=== PATIENT | female | born 1990 | race Caucasian/White ===

== ENCOUNTER → 2020-06-07 13:36 | Outpatient (BNVA) | payer BC, MEDICAID, SELFPAY | PROVIDERS: Family Provider Family Medicine; Visit Provider Nurse Practitioner Women's Health | DX: Z34.80 Encounter for supervision of other normal pregnancy, unspecified trimester (principal) | CPT/HCPCS: 81000 ==

== ENCOUNTER → 2020-06-13 09:40 | Outpatient (BNVA) | payer BC, MEDICAID, SELFPAY | PROVIDERS: Family Provider Family Medicine; Visit Provider Obstetrics & Gynecology | DX: Z34.80 Encounter for supervision of other normal pregnancy, unspecified trimester (principal) | CPT/HCPCS: 80307; 81000; 85027; 86592; 86762; 86803; 86850; 86900; 87086; 87340; 87491; 87591; 87806 ==

== ENCOUNTER → 2020-07-07 14:51 | Outpatient (BNVA) | payer BC, MEDICAID, SELFPAY | PROVIDERS: Family Provider Family Medicine; Visit Provider Nurse Practitioner Women's Health | DX: Z34.90 Encounter for supervision of normal pregnancy, unspecified, unspecified trimester (principal); Z78.9 Other specified health status; B00.9 Herpesviral infection, unspecified; Z34.80 Encounter for supervision of other normal pregnancy, unspecified trimester | CPT/HCPCS: 81000 ==

== ENCOUNTER → 2020-08-05 13:05 | Outpatient (BNVA) | payer BC, MEDICAID, SELFPAY | PROVIDERS: Family Provider Family Medicine; Visit Provider Obstetrics & Gynecology | DX: Z36.87 Encounter for antenatal screening for uncertain dates (principal) | CPT/HCPCS: 76805 ==

== ENCOUNTER → 2020-08-09 09:15 | Outpatient (BNVA) | payer BC, MEDICAID, SELFPAY | PROVIDERS: Family Provider Family Medicine; Visit Provider Obstetrics & Gynecology | DX: Z34.80 Encounter for supervision of other normal pregnancy, unspecified trimester (principal) | CPT/HCPCS: 81000 ==

== ENCOUNTER → 2020-08-30 14:24 | Outpatient (BNVA) | payer BC, MEDICAID, SELFPAY | PROVIDERS: Family Provider Family Medicine; Visit Provider Nurse Practitioner Women's Health | DX: Z34.80 Encounter for supervision of other normal pregnancy, unspecified trimester (principal) | CPT/HCPCS: 81000; 82950 ==

== ENCOUNTER → 2020-09-27 10:31 | Outpatient (BNVA) | payer BC, MEDICAID, SELFPAY | PROVIDERS: Family Provider Family Medicine; Visit Provider Obstetrics & Gynecology | DX: Z34.80 Encounter for supervision of other normal pregnancy, unspecified trimester (principal) | CPT/HCPCS: 81000; 85027 ==

== ENCOUNTER → 2020-10-17 13:37 | Outpatient (BNVA) | payer BC, MEDICAID, SELFPAY | PROVIDERS: Family Provider Family Medicine; Visit Provider Obstetrics & Gynecology | DX: Z34.80 Encounter for supervision of other normal pregnancy, unspecified trimester (principal) | CPT/HCPCS: 81000 ==

== ENCOUNTER → 2020-10-24 10:01 | Outpatient (BNVA) | payer BC, MEDICAID, SELFPAY | PROVIDERS: Family Provider Family Medicine; Visit Provider Obstetrics & Gynecology | DX: Z34.80 Encounter for supervision of other normal pregnancy, unspecified trimester (principal) | CPT/HCPCS: 81000 ==

== ENCOUNTER 2020-10-31 15:38 | Outpatient (CLI) | payer BC, MEDICAID, SELFPAY ==
[2020-10-31] VITALS (7 sets, daily range): BP systolic 105–119; BP diastolic 59–68; PULSE 81–91; RESP 18; TEMP 36.3–36.9; BMI 29.5
--- NOTE | 2020-10-31 15:59 | USR_ITS ---
PROCEDURE INFORMATION: Exam: US Biophysical Profile Without Non-Stress Test Exam date and time: 10/31/2020 3:59 PM Age: 30 years old Clinical indication: Other: Growth; ; Additional info: Abnormal growth TECHNIQUE: Imaging protocol: US biophysical profile without non-stress testing. COMPARISON: US OB >= 14 weeks fetus [id number] 08/05/2020 1:06 PM FINDINGS: Gestation: Single live intrauterine gestation. heart rate: heart rate 138 bpm. Presentation: Cephalic presentation. Placenta: Anterior placenta without previa. No abruption. Amniotic fluid index: Amniotic fluid index estimated 15.8 cm. BIOPHYSICAL PROFILE: Breathin/2 Gross body movements: 2/2 tone: 2/2 Qualitative amniotic fluid: 2/2 Biophysical Profile Score: 8/8 BIOMETRY: Estimated weight: Estimated weight 1938 g. Gestational age (AUA): Estimated gestational age based on current biometry is 32 weeks, 3 days. Previously estimated gestational age is 32 weeks, 6 days. MATERNAL ANATOMY: Cervix: Cervical length approximately 4.1 cm measured transabdominally. Other findings: Biparietal diameter of the fetus is 8.04 cm; 26th percentile. Head circumference of the fetus is 29.72 cm; 15th percentile. Abdominal circumference of the fetus is 27.96 cm; 26 percentile. Femur length of the fetus is 6.28 cm; 29th percentile. Estimated weight percentile 54th percentile. US/ [place] [id number] IMPRESSION: 1. Single live cephalic presentation intrauterine gestation. 2. Unremarkable amniotic fluid index. 3. Biophysical profile score 8/8. 4. growth parameters grossly unremarkable. Current biometry relatively concordant with previously estimated gestational age.
== END 2020-10-31 17:40 | disposition home or self-care (01) ==
LOC: OPOB 15:43 → OBGYN 15:43
PROVIDERS: Family Provider Family Medicine; Visit Provider Obstetrics & Gynecology
DX: O26.899 Other specified pregnancy related conditions, unspecified trimester (principal); Z3A.00 Weeks of gestation of pregnancy not specified; R10.9 Unspecified abdominal pain
CPT/HCPCS: 59025; 76819; 99211

== ENCOUNTER → 2020-11-11 09:41 | Outpatient (BNVA) | payer BC, MEDICAID, SELFPAY | PROVIDERS: Family Provider Family Medicine; Visit Provider Obstetrics & Gynecology | DX: Z34.80 Encounter for supervision of other normal pregnancy, unspecified trimester (principal) | CPT/HCPCS: 81000 ==

== ENCOUNTER 2020-11-18 06:24 | Outpatient (CLI) | payer BC, MEDICAID, SELFPAY ==
[2020-11-18 06:39] VITALS: BP 107/67; PULSE 83
[2020-11-18 06:55] VITALS: BMI 29.7
--- NOTE | 2020-11-18 07:01 | PM.ACPR ---
Procedure/Consent Procedure Narrative: NONSTRESS TEST: Place of test: [facility] [place]-L&D Indication: 30-year-old 5 para 2-1-1-3 at 35 weeks and 3 days Date and time of test: 6:45 AM on 11/18/2020 Baseline: 135 Variability: Moderate variability Accelerations: Accelerations present Decelerations: No decelerations Tocometry: Irregular contractions INTERPRETATION: NST reactive, continue kick counts
[2020-11-18] MEDS: lactated ringers 1,000 ML 999 ML IV (07:53)
[2020-11-18 07:55] VITALS: BP 114/70; PULSE 75
[2020-11-18 07:58] VITALS: RESP 17
[2020-11-18 08:25] VITALS: BP 103/61; PULSE 76
[2020-11-18 08:50] VITALS: TEMP 36.3
[2020-11-18 08:52] VITALS: BP 111/66; PULSE 72
== END 2020-11-18 09:00 | disposition home or self-care (01) ==
LOC: OPOB 06:31 → OBGYN 06:31
PROVIDERS: Family Provider Family Medicine; Visit Provider Obstetrics & Gynecology
DX: O26.893 Other specified pregnancy related conditions, third trimester (principal); Z3A.00 Weeks of gestation of pregnancy not specified; R10.9 Unspecified abdominal pain; Z3A.35 35 weeks gestation of pregnancy
CPT/HCPCS: 59025; 96360; 99211

== ENCOUNTER → 2020-11-22 09:50 | Outpatient (BNVA) | payer BC, MEDICAID, SELFPAY | PROVIDERS: Family Provider Family Medicine; Visit Provider Obstetrics & Gynecology | DX: Z34.80 Encounter for supervision of other normal pregnancy, unspecified trimester (principal) | CPT/HCPCS: 81000; 87081 ==

== ENCOUNTER → 2020-11-29 09:52 | Outpatient (BNVA) | payer BC, MEDICAID, SELFPAY | PROVIDERS: Family Provider Family Medicine; Visit Provider Obstetrics & Gynecology | DX: Z34.80 Encounter for supervision of other normal pregnancy, unspecified trimester (principal) | CPT/HCPCS: 81000 ==

== ENCOUNTER → 2020-12-09 14:05 | Outpatient (BNVA) | payer BC, MEDICAID, SELFPAY | PROVIDERS: Family Provider Family Medicine; Visit Provider Obstetrics & Gynecology | DX: Z34.80 Encounter for supervision of other normal pregnancy, unspecified trimester (principal) | CPT/HCPCS: 81000 ==

== ENCOUNTER 2020-12-13 21:20 | Inpatient (IN) | payer BC, MEDICAID, SELFPAY ==
[2020-12-13] VITALS (10 sets, daily range): BP systolic 110–119; BP diastolic 64–74; PULSE 69–95; RESP 15–16; TEMP 36.6–37; BMI 31.6
[2020-12-13] MEDS: miSOPROStol 100 mcg tablet 25 MCG VAGINAL ×2 (18:42→23:30)
[2020-12-13 19:15] LABS: Basophils % 0.3 %; Eosinophils # 0.3 10^3/uL (0.0-0.8); Eosinophils % 2.8 %; Hematocrit 34.4 % (37.0-47.0); Hemoglobin 11.6 g/dL (11.5-15.3); Lymphocytes # 2.3 10^3/uL (0.8-4.8); Lymphocytes % 22.2 %; Mean Corpuscular HGB Conc 33.7 g/dL (30.0-36.0); Mean Corpuscular Hemoglobin 30.9 pg (28.0-34.0); Mean Corpuscular Volume 91.7 fl (81-99); Mean Platelet Volume 11.2 fL (7.4-10.4); Monocytes # 0.7 10^3/uL (0.2-0.9); Monocytes % 7.1 %; Neutrophils # 6.95 10^3/uL (1.8-7.7); Neutrophils % 66.9 %; Nucleated Red Blood Cells % 0 %; Platelet Count 228 10^3/cmm (130-400); Red Blood Count 3.75 10^6/uL (4.1-5.3); Red Cell Distribution Width 12.8 % (12.1-15.1); White Blood Count 10.4 10^3/uL (4.0-10.0)
[2020-12-13 19:31] LABS: Amphetamines Screen Urine Negative (Negative); Barbiturates Screen Urine Negative (Negative); Benzodiazepines Screen Urine Negative (Negative); Cocaine Screen Urine Negative (Negative); Opiate Screen Urine Negative (Negative); PCP Screen Urine Negative (Negative); THC Screen Urine Negative (Negative)
[2020-12-14] VITALS (73 sets, daily range): BP systolic 107–134; BP diastolic 56–85; PULSE 60–93; RESP 16–18; TEMP 35.9–37.1; O2SAT 83–100
[2020-12-14] MEDS: fentaNYL 50 mcg/mL INJ 2mL IVP ×2 (02:56→04:07)
[2020-12-14] MEDS: lactated ringers 1,000 ML 999 ML IV ×2 (04:05→05:06)
--- NOTE | 2020-12-14 05:14 | ANES.PREANE2 ---
Pre-Anesthetic Assessment Pre-Anesthetic Assessment: Height/Weight: Height 1.63 m Weight 83.461 kg Temp Pulse Resp BP 98.2 F 72 16 123/70 12/13/20 23:33 12/14/20 04:56 12/14/20 04:07 12/14/20 04:56 Preop Diagnosis: labor pain Proposed Procedure: epidural Familial anesthetic complications: epidural worked on one side last time Was Beta Jacob taken within 24 hours: N/A Was Clonidine taken within 24 hours: N/A Social: Social History: No alcohol and No tobacco Exam: Pre-Anes Outpt Exam: alert, oriented x 3, clear to auscultation bilaterally and regular rate & rhythm Airway: Submandibular: WNL Cervical ROM: WNL MP: 2 Dentition: Full Pulmonary: Pulmonary: None reported CV/HEM: CV/HEM: None reported : : None reported Hepatic: Hepatic: None reported GI: GI: GERD Metabolic: Metabolic: None reported Musc/skel: Musc/skel: None reported Neuropsych: Neuropsych: Anxiety Anesthetic Plan: ASA status: 2 Anesthesia: Regional (specify below) Risk of > 500 ml blood loss (7ml/kg in children): No Meds/Allergies Current Medications: Current Medications Generic Name Dose Route Start Last Admin Trade Name Freq PRN Reason Stop Dose Admin Fentanyl 25 - 100 mcg 12/13/20 18:24 12/14/20 04:07 Fentanyl 50 Mcg/ Ml Inj 2ml IVP 50 mcg Q1H PRN Administration SEVERE PAIN Lactated Ringer's 1,000 mls @ 999 m ls/hr 12/14/20 03:46 12/14/20 04:05 Lactated Ringers IV 999 mls/hr .Q1H1M PRN Administration See label comment s PFSH Anesthesia PFSH: Medical History Herpes No pertinent past medical history neghx: htn,dm,thyroid,dvt/pe PCP: None Surgical History Hx of wisdom tooth extraction (~2015) Family History Denies family history of Colon cancer Ovarian cancer Diabetes Heart disease Hypercholesteremia Breast cancer Hypertension Uterine cancer Thyroid disease Stroke Social History Smoking and tobacco status: former smoker Alcohol intake: never Female Reproductive History: : 5 Data Anesthesia CBC & Chem 7: 12/13/20 18:30 Other Labs: Laboratory Results - last 48 hr 12/13/20 12/13/20 18:30 18:30 WBC 10.4 H RBC 3.75 L Hgb 11.6 Hct 34.4 L MCV 91.7 MCH 30.9 MCHC 33.7 RDW 12.8 Plt Count 228 MPV 11.2 H Neut % (Auto) 66.9 Lymph % (Auto) 22.2 [place] % (Auto) 7.1 Eos % (Auto) 2.8 Baso % (Auto) 0.3 Neut # (Auto) 6.95 Lymph # (Auto) 2.3 [place] # (Auto) 0.7 Eos # (Auto) 0.3 Baso # (Auto) 0.0 Nucleated RBC % (auto) 0 Nucleated RBCs # 0.0 Urine Opiates Screen Negative Ur Barbiturates Screen Negative Ur Phencyclidine Scrn Negative Ur Amphetamines Screen Negative U Benzodiazepines Scrn Negative Urine Cocaine Screen Negative U Marijuana (THC) Screen Negative Cardiac Studies: No Data to Display
--- NOTE | 2020-12-14 05:41 | P.ANES_ITS ---
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 given, vitals taken during procedure using OBIX system and satisfactory throughout, patient admits to decrease pain, report of procedure to OB RN Epidural: Time Out Performed: Yes Consents Signed: Procedure Consent Consent: requested by attending/covering physician, from patient, risks and benefits reviewed and patient agrees to proceed Lumbar Level: L3-L4 Epidural position: sitting Epidural procedure: sterile prep of area, 1% lidocaine to numb the area (3 mL), 18 g needle, negative for paresthesia passed, neg for paresthesia, test dose given, 1.5% xylocaine 1:200k epi (5 mL), 0.2% Ropivacaine bolus ml (5 mL), placed PCEA, no systemic response, sterile dressing applied, L.U.D. no apparent complications and 0.2% Ropiavacaine @ mls/hr (13 mL/hr)
--- NOTE | 2020-12-14 06:26 | PM.OPHPUD ---
Labor & Delivery H&P Update Date of Procedure: December 14, 2020 Date H&P Performed: 12/09/20 H&P update information: I have reviewed H&P completed within last 30 days, I have examined patient prior to procedure and Changes to prior documentation as noted here Changes to previous documentation: patient is here for induction of labor. cervix 4 plan cytotec induction for IUGR and polyhydramnios. Admission Diagnosis: at 39w1d Preop diagnosis: labor pain Related Problem List Diagnoses (1) Intrauterine growth restriction affecting antepartum care of mother in third trimester: (2) Sterilization consult: (3) hydronephrosis in , antepartum, single gestation: (4) Polyhydramnios:
[2020-12-14] MEDS: dextrose 5%-lactated ringers 1,000 ML 125 ML IV (07:00)
[2020-12-14 08:15] LABS: SARS Covid-2 Antigen Negative (Negative)
[2020-12-14] MEDS: oxytocin 30 UNIT/500 ML BAG IV (12:02)
--- NOTE | 2020-12-14 15:01 | P.PCNOB_ITS ---
Delivery Note: Date of delivery: December 14, 2020 Pre-delivery diagnoses: term iup at 39 1/7 weeks, iugr, polyhydramnios Post- delivery diagnoses: same Procedure: Op report anesthesia: Epidural Delivering Physician: marlon Estimated blood loss (mL): 5 Pre-Delivery Course: The patient presented for induction at term for polyhydramnios and IUGR. She received two doses of cytotec and started valery on her own. Low dose pitocin was started to augment labor and when the patient was dilated to 6 cm, AROM was performed. She quickly had complete cervical dilation. Delivery: The patient had complete cervical dilation and began to push. The head delivered in the MARIETTA position over an intact perineum under epidural anesthesia. There was a single nuchal cord which was reduced at the perineum. The nose and mouth were bulb suctioned. The shoulders and body delivered atraumatically. The baby was placed onto the mother's abdomen. The cord was clamped and cut. Cord blood was obtained. The placenta delivered spontaneously. It was inspected and found to be intact. Inspection of the perineum revealed no laceration. Estimated blood loss 5 mL. Apgars on baby were 8 at 1 minute and 9 at 5 minutes. Weight of baby is pending. Mother and baby were stable post delivery. A&P Assessment and plan (1) Intrauterine growth restriction affecting antepartum care of mother in third trimester: Status: Acute Qualifiers: Fetus number: single or unspecified fetus Qualified Code(s): O36.5930 - Maternal care for other known or suspected poor growth, third trimester, not applicable or unspecified (2) Sterilization consult: Status: Acute (3) hydronephrosis in , antepartum, single gestation: Status: Acute (4) Polyhydramnios: Status: Acute Coding Level of Care Code Acute Veterinary Bacteriologist for Chg Fwd Diagnoses Intrauterine growth restriction affecting antepartum care of mother in third trimester O36.5930 Fetus number: single or unspecified fetus Sterilization consult Z30.09 hydronephrosis in , antepartum, single gestation O35.8XX0 Polyhydramnios O40.9XX0
[2020-12-14] MEDS: docusate sodium 100 mg Capsule PO (18:00)
[2020-12-14] MEDS: lanolin oint 7 gm 1 APPLIC TOPICAL (18:00)
[2020-12-14] MEDS: benzocaine-menthol 78 gm Canister 1 SPRAY TOPICAL (18:01)
[2020-12-14] MEDS: HYDROcodone-acetaminophen 5-325 mg Tablet PO (18:36)
[2020-12-14] MEDS: ibuprofen 800 mg tablet PO (20:51)
[2020-12-15 00:45] VITALS: BP 99/63; PULSE 71; RESP 18; TEMP 36.7; O2SAT 98
[2020-12-15] MEDS: HYDROcodone-acetaminophen 5-325 mg Tablet PO (02:37)
[2020-12-15 03:08] LABS: Hematocrit 35.5 % (37.0-47.0); Mean Corpuscular HGB Conc 33.8 g/dL (30.0-36.0); Mean Corpuscular Hemoglobin 31.5 pg (28.0-34.0); Mean Corpuscular Volume 93.2 fl (81-99); Platelet Count 199 10^3/cmm (130-400); Red Blood Count 3.81 10^6/uL (4.1-5.3); Red Cell Distribution Width 12.8 % (12.1-15.1); White Blood Count 14.1 10^3/uL (4.0-10.0)
[2020-12-15 04:52] VITALS: BP 98/65; PULSE 67; RESP 19; TEMP 36.6; O2SAT 99
--- NOTE | 2020-12-15 07:05 | ANE.PACU2 ---
Inpatient post-anesthesia follow up: Airway intact: Yes Vital signs: Temperature 97.9 F Pulse Rate 58 Respiratory Rate 16 Blood Pressure 114/75 Pulse Oximetry 100 Oxygen Delivery Me thod Room Air Oxygen Flow Rate Fraction of Inspir ed Oxygen Hydration adequate: Yes Nausea and vomiting: No Pain level: 2 Mental status: Baseline
--- NOTE | 2020-12-15 08:29 | P.DS_ITS ---
Discharge Providers Date of Admission: 12/13/20 21:20 Date of Discharge: December 15, 2020 Attending Provider at Admission: Yahaira Larkin MD Attending Provider at Discharge: Yahaira Larkin MD Diagnoses at Discharge Discharge Diagnosis (1) Intrauterine growth restriction affecting antepartum care of mother in third trimester: Status: Resolved Qualifiers: Fetus number: single or unspecified fetus Qualified Code(s): O36.5930 - Maternal care for other known or suspected poor growth, third trimester, not applicable or unspecified (2) Sterilization consult: Status: Acute (3) hydronephrosis in , antepartum, single gestation: Status: Resolved (4) Polyhydramnios: Status: Resolved Reason for Visit Reason for Visit: INDUCTION OF LABOR Hospital Course Hospital Course The patient was admitted for induction of labor. She had spontaneous delivery of a term infant. She did well and was ready for discharge on day #1 Physical Exam Urinary Catheter Management^: Escobar Latex: Cath Placed During This Visit: yes, but has since been removed by the nurse Reason for Continuing Indwelling Catheter: Required Immobilization for Trauma or Surgery or Anesthesia Urinary Catheter Date of Insertion: 12/14/20 Urinary Catheter Time of Insertion: 05:50 Date Urinary Catheter Removed: 12/14/20 Time Urinary Catheter Discontinued: 14:45 Discharge Data Data Completed and Pending: Pending at discharge Category Date Time Status COVID [Coronaviru s Test Green Count y] Stat Lab 12/14/20 07:44 Received Labs from last 24 hours 12/15/20 03:03 WBC 14.1 H RBC 3.81 L Hgb 12.0 Hct 35.5 L MCV 93.2 MCH 31.5 MCHC 33.8 RDW 12.8 Plt Count 199 MPV 11.0 H Vitals: Last Vital Signs Temp 97.9 F 12/15/20 04:52 Pulse 67 12/15/20 04:52 Resp 19 H 12/15/20 04:52 BP 98/65 12/15/20 04:52 Pulse Ox 99 12/15/20 04:52 Discharge Plan Discharge Patient Disposition: Home Condition: Stable Prescriptions: Continued prenat.vits,audi,[id number] Tablet 1 tab PO DAILY Qty: 90 RF: 3 Discharge Orders: Discharge Order (Routine); Ordered 12/15/20 Ordered By: Yahaira Larkin Referrals: Sangeetha Salazar MD [Physician] - 01/27/21 2:15 pm Patient Instructions: Depression (GEN), Expression, Collection and Storage of Breast Milk (GEN), How to Hold and Breastfeed Your Baby (GEN), and Nipple Soreness (ED), and Breast Engorgement (GEN), Caring for Your Breastfed Baby (GEN), Bleeding (GEN), OB Discharge Report, OB Food/Drug Interaction Guide, Opioid Safety, OB Home Care, Abnormal Bleeding Discharge Attestations Time Spent in Discharge Care*: less than 30 min Quality Metrics Clinical Quality Measures During this hospital stay, did patient experience: None Coding Level of Care Code Acute Chg [facility] note Diagnoses Intrauterine growth restriction affecting antepartum care of mother in third trimester O36.5930 Fetus number: single or unspecified fetus Sterilization consult Z30.09 hydronephrosis in , antepartum, single gestation O35.8XX0 Polyhydramnios O40.9XX0
[2020-12-15] MEDS: docusate sodium 100 mg Capsule PO (09:07)
[2020-12-15] MEDS: prenatal vitamin Capsule 1 CAP PO (09:07)
[2020-12-15] MEDS: ibuprofen 800 mg tablet PO (09:07)
[2020-12-15 10:04] VITALS: BP 94/60; PULSE 90; RESP 18; TEMP 36.6
[2020-12-15 16:02] LABS: Coronavirus Test Green County Not Detected
[2020-12-15 16:10] VITALS: BP 114/75; PULSE 58; RESP 16; O2SAT 100
[2020-12-15 16:55] VITALS: BP 114/75; PULSE 58; RESP 16; O2SAT 100
== END 2020-12-15 16:55 | disposition home or self-care (01) | DRG 807 ==
LOC: OPOB 21:23 → OBGYN 21:23
PROVIDERS: Admitting Provider Obstetrics & Gynecology; PCP Family Medicine; Visit Provider Obstetrics & Gynecology
DX: O40.3XX0 Polyhydramnios, third trimester, not applicable or unspecified (principal); Z37.0 Single live birth; O69.2XX0 Labor and delivery complicated by other cord entanglement, with compression, not applicable or unspecified; Z3A.39 39 weeks gestation of pregnancy
CPT/HCPCS: 36415; 51702; 59025; 59409; 80306; 85025; 85027; 87426; 87635; 96374; 96376; J2795; J3010

== ENCOUNTER → 2021-04-07 00:01 | Outpatient (BNVA) | payer BC, MEDICAID, SELFPAY | PROVIDERS: Visit Provider Obstetrics & Gynecology | DX: Z20.822 Contact with and (suspected) exposure to COVID-19 (principal); Z30.2 Encounter for sterilization | CPT/HCPCS: 87635 ==

== ENCOUNTER 2021-04-12 11:55 | Day surgery (SDC) | payer BC, MEDICAID, SELFPAY ==
[2021-04-10 11:21] VITALS: BMI 30.2
[2021-04-10 12:21] LABS: Basophils % 0.7 %; Eosinophils # 0.2 10^3/uL (0.0-0.8); Eosinophils % 5.3 %; Hematocrit 39.7 % (37.0-47.0); Hemoglobin 13.8 g/dL (11.5-15.3); Lymphocytes # 0.4 10^3/uL (0.8-4.8); Lymphocytes % 9.6 %; Mean Corpuscular HGB Conc 34.8 g/dL (30.0-36.0); Mean Corpuscular Hemoglobin 30.9 pg (28.0-34.0); Mean Corpuscular Volume 88.8 fl (81-99); Mean Platelet Volume 10.3 fL (7.4-10.4); Monocytes # 0.4 10^3/uL (0.2-0.9); Monocytes % 9.2 %; Neutrophils # 3.41 10^3/uL (1.8-7.7); Neutrophils % 74.8 %; Nucleated Red Blood Cells % 0 %; Platelet Count 196 10^3/cmm (130-400); Red Blood Count 4.47 10^6/uL (4.1-5.3); Red Cell Distribution Width 11.9 % (12.1-15.1); White Blood Count 4.6 10^3/uL (4.0-10.0)
[2021-04-10 12:31] LABS: Alanine Aminotransferase 9 U/L (0-33); Albumin Level 4.5 g/dL (3.5-5.2); Alkaline Phosphatase 77 IU/L (35-105); Anion Gap 18.1 (5-19); Aspartate Amino Transferase 11 U/L (0-32); Blood Urea Nitrogen 14 mg/dL (6-20); Calcium 9.7 mg/dL (8.5-10.5); Carbon Dioxide 21 mmol/L (22-29); Chloride 104 mmol/L (98-107); Creatinine Clr Calc Pharmacy 121.2188; Globulin 3.1 g/dL (1.3-4.6); Glomerular Filtration Rate 98.9 mL/min (90-130); Glucose 81 mg/dL (65-115); Osmolality Calculated 288 mOsm/kg (285-295); Potassium 4.1 mmol/L (3.5-5.1); Sodium 139 mmol/L (136-145); Total Bilirubin 0.6 mg/dL (0.15-1.2); Total Protein 7.6 g/dL (6.6-8.7)
[2021-04-10 12:47] LABS: Add Urine Microscopic? YES; Bilirubin Urine Neg (Negative); Blood Urine Neg (Negative); Glucose Urine UA Norm (Normal); Ketones Urine Negative (Negative); Leukocyte Esterase Urine 1+ (Negative); Nitrate Urine Negative (Negative); Protein Urine Neg (Negative); Specific Gravity, Urine 1.025 (1.005-1.030); Urine Appearance Clear (CLEAR); Urine Color Yellow (Yellow); Urobilinogen Urine Norm (Negative); pH Urine 5 (5-7)
[2021-04-10 12:49] LABS: Add Urine Culture? No; Bacteria Urine 1+ /hpf; Mucus Urine 2+ /hpf; Squamous Epithelial Cell Urine 15-25 /hpf (0-5)
--- NOTE | 2021-04-10 13:03 | P.ANESASSM_ITS ---
Pre-Anesthetic Assessment Pre-Anesthetic Assessment: Height/Weight: Height 1.63 m Weight 79.832 kg Preop Diagnosis: Desires permanent sterilization Proposed Procedure: Operation Date: 04/12/21 11:55 Proposed Procedures p Laparoscopic Salpingectomy 80073 Z30.2(Bilateral) - Yovanny Daniel MD Was Beta Jacob taken within 24 hours: N/A Was Clonidine taken within 24 h ours: N/A Social: Social History: Tobacco Packs per day: Daily vape Exam: Pre-Anes Outpt Exam: alert, oriented x 3, clear to auscultation bilaterally and regular rate & rhythm Airway: Submandibular: WNL Cervical ROM: WNL MP: 1 Dentition: Full Pulmonary: Pulmonary: None reported CV/HEM: CV/HEM: None reported : : None reported Hepatic: Hepatic: None reported GI: GI: GERD Musc/skel: Musc/skel: None reported Neuropsych: Neuropsych: None reported Anesthetic Plan: ASA status: 2 Anesthesia: Anesthesia Evaluation and General Other: We discussed risk and benefits of general anesthesia. Plan general. 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 I conducted a brief goal based smoking cessation interview with this patient providing options, support, and feedback. Risk of > 500 ml blood loss (7ml/kg in children): No Other Pertinent Information: Hx of herpes PFSH Anesthesia PFSH: Medical History Herpes Surgical History Hx of wisdom tooth extraction (~2015) Family History Denies family history of Colon cancer Ovarian cancer Diabetes Heart disease Hypercholesteremia Breast cancer Hypertension Uterine cancer Thyroid disease Stroke Social History Smoking and tobacco status: current every day smoker (Vape) e-cigarettes E-Cig arette Details: vaporizer device and with nicotine E-cig/vape details: vapes multiple times per day Alcohol intake: never Substance/Drug Use: former Date of last use: 7-8 months ago Female Reproductive History: Date of last menstrual period: 03/10/21 Data Anesthesia CBC & Chem 7: 04/10/21 11:50 04/10/21 11:50 Other Labs: Laboratory Results - last 48 hr 04/10/21 04/10/21 04/10/21 11:50 11:50 11:50 WBC 4.6 RBC 4.47 Hgb 13.8 Hct 39.7 MCV 88.8 MCH 30.9 MCHC 34.8 RDW 11.9 L Plt Count 196 MPV 10.3 Neut % (Auto) 74.8 Lymph % (Auto) 9.6 [place] % (Auto) 9.2 Eos % (Auto) 5.3 Baso % (Auto) 0.7 Neut # (Auto) 3.41 Lymph # (Auto) 0.4 L [place] # (Auto) 0.4 Eos # (Auto) 0.2 Baso # (Auto) 0.0 Nucleated RBC % (auto) 0 Nucleated RBCs # 0.0 Sodium 139 Potassium 4.1 Chloride 104 Carbon Dioxide 21 L Anion Gap 18.1 BUN 14 Creatinine 0.7 GFR Calculation 98.9 Glucose 81 Calculated Osmolality 288 Calcium 9.7 Total Bilirubin 0.6 AST 11 ALT 9 Alkaline Phosphatase 77 Total Protein 7.6 Albumin 4.5 Globulin 3.1 Urine Color Yellow Urine Appearance Clear Urine pH 5 Ur Specific [place] 1.025 Urine Protein Neg Urine Glucose (UA) Norm Urine Ketones Negative Urine Blood Neg Urine Nitrate Negative Urine Bilirubin Neg Urine Urobilinogen Norm Ur Leukocyte Esterase 1+ H Urine RBC None Urine WBC 5-10 H Ur Squamous Epith Cells 15-25 H Amorphous Sediment Not Reportable Urine Bacteria 1+ H Urine Mucus 2+ Cardiac Studies: No Data to Display
[2021-04-12] VITALS (10 sets, daily range): BP systolic 115–151; BP diastolic 68–108; PULSE 49–81; RESP 14–18; TEMP 36.1–36.6; O2SAT 93–99
[2021-04-12 12:20] LABS: OR HCG Qualitative Urine Negative (Negative)
[2021-04-12] MEDS: sodium chloride 0.9% 1,000 ML 30 ML IV (12:30)
[2021-04-12] MEDS: sodium chloride 0.9% 500 ML IV (12:36)
[2021-04-12] MEDS: scopolamine 1.5 Patch 1 PATCH TRANSDERMA (12:36)
--- NOTE | 2021-04-12 13:29 | P.ANESUD_ITS ---
Pre-Anesthetic Update Pre-Anesthetic Assessment: Date of Surgery/Procedure: 04/12/21 Preop Malika gnosis: Desires permanent sterilization Proposed Procedure: Operation Date: 04/12/21 13:05 Proposed Procedures p Laparoscopic Salpingectomy 56140 Z30.2(Bilateral) - Yovanny Daniel MD Changes from Pre-Anesthetic Assessment: Brief fever to 100 degrees Fahrenheit on 04/10/21. Resolved by next day (). Patient called and notified Dr. Daniel. No purulent sputum, no known sick contacts. Feels better now. We discussed possibility of increased risk of pulmonary complication. Patient would like to proceed. Last Intake: Intake Last Liquid Date 04/11/21 Last Liquid Time 06:00 Last Solid Date 04/11/21 Last Solid Time 20:00 Vitals: Temperature 97.8 F 04/12/21 12:23 Temperature Source Temporal Artery S can 04/12/21 12:23 Pulse Rate 81 04/12/21 12:23 Pulse Rhythm 04/12/21 12:22 Pulse Strength 3+ Normal 04/12/21 12:22 Respiratory Rate 18 04/12/21 12:23 Blood Pressure 128/93 04/12/21 12:23 Blood Pressure Shante n 104 04/12/21 12:23 Pulse Oximetry 98 04/12/21 12:23 Oxygen Delivery Me thod 04/12/21 12:23 Exam: Pre-Anes Outpt Exam: alert, oriented x 3, clear to auscultation bilaterally and regular rate & rhythm Cardiac Studies: No Data to Display
--- NOTE | 2021-04-12 13:50 | W.PM.OPSUD ---
Surgery/Procedure H&P Update DATE OF PROCEDURE: April 12, 2021 DATE H&P PERFORMED: 04/10/21 H&P UPDATE INFORMATION: I have examined patient prior to procedure and No changes to prior documentation PREOP DIAGNOSIS: Desires permanent sterilization PLANNED PROCEDURE: Operation Date: 04/12/21 13:05 Proposed Procedures p Laparoscopic Salpingectomy 82511 Z30.2(Bilateral) - Yovanny Daniel MD
--- NOTE | 2021-04-12 16:28 | PM.OP ---
Operative Report Date of procedure: April 12, 2021 Pre-op diagnosis: Preop Diagnosis Desires permanent sterilization Post-op diagnosis: same Post-op findings: Normal uterus, ovaries and fallopian tubes Procedure done: laparoscopic bilateral tubal salpingectomy Pathology: Left and right follow-up Surgeon: Yovanny Daniel MD Estimated blood loss (mL): 5 IV fluids (mL): 600 Urine output (mL): 50 Complications: None Brief History: 31-year-old G6, P4 desires permanent sterilization Procedure: After informed consent, the patient was taken to the operating room where general anesthesia was administered. She was placed in the dorsal lithotomy position and prepped and draped in sterile fashion. Pre-Procedure Time-Out verifying the correct patient identity, correct procedure verified with consent, correct site and side, correct patient position, availability of correct implants and any special equipment or requirements was performed and acknowledge by the OR team. The patient was examined under anesthesia and found to have a normal uterus with normal adnexa. A weighted speculum was placed in the vagina, and the anterior lip of cervix was grasped with the single toothed tenaculum. A uterine manipulator was advanced into the endocervical canal and uterus. The tenaculum was removed after uterine manipulator was secured. The speculum was removed from the vagina. An intraumbilical incision was made with a scalpel. While tenting up on the abdomen, a Verres needle was admitted into the intra-abdominal cavity. A saline drop test was performed and noted to be within normal limits. Pneumoperitoneum was attained with 4 liters of carbon dioxide. The Verres needle was removed. A 5 mm Opitc view trocar and sleeve were admitted into the abdomen and laparoscopic confirmation of location was achieved. A second incision was made 3 cm above the symphysis pubis, and a 5 mm trocar sleeves were admitted into the abdomen under direct laparoscopic visualization without complication. A survey revealed normal abdominal anatomy with the exception of string adhesion to the right lower anterior abdominal wall. A 5 mm blunt probe was advanced through the second trocar sleeve, and light manipulation of ovaries and uterus to assess the posterior aspects was performed. The pelvic survey shows normal uterus, left and right adnexa. The patient was placed into Trendelenburg position. The fallopian tubes were inspected bilaterally and the fimbriated ends of the fallopian tubes were visualized bilaterally. Attention was then directed to the right side. The fallopian tube and mesosalpinx were grasped and the underlying mesosalpinx was cauterized and cut using the Enseal device. Serial cauterization and cutting was used to separate the fallopian tube from the underlying mesosalpinx until it could be amputated cutting it approximated 2 cm from the cornua. Attention was then turned to the contralateral fallopian tube, which was removed in similar fashion. Both specimens were removed through the trocar and sent to pathology. The instruments were removed. The suprapubic trocar port was removed under direct visualization insuring good hemostasis. The carbon dioxide was allowed to escape from the abdomen. The intraumbilical trocar sleeve was withdrawn under visualization with laparoscope in the sleeve to insure hemostasis. The skin incisions were closed with 3-O Monocryl subcuticular stich and Dermabond. The instruments were removed from the vagina, and excellent hemostasis was noted. The patient tolerated the procedure well, and sponge, lap and needle count were correct times two. The patient was taken to the recovery room in good condition.
--- NOTE | 2021-04-12 19:00 | ANE.PACU2 ---
Inpatient post-anesthesia follow up: Airway intact: Yes Vital signs: Temperature 97.4 F Pulse Rate 49 Respiratory Rate 18 Blood Pressure 115/68 Pulse Oximetry 98 Oxygen Delivery Me thod Room Air Oxygen Flow Rate Fraction of Inspir ed Oxygen Hydration adequate: Yes Nausea and vomiting: No Pain level: 4 Mental status: Baseline
== END 2021-04-12 18:16 | disposition home or self-care (01) ==
PROVIDERS: Anesthesiology; PCP Nurse Practitioner Family; Visit Provider Obstetrics & Gynecology
PROC: (CPT 58661; principal; 2021-04-12 12:55)
DX: Z30.2 Encounter for sterilization (principal); K21.9 Gastro-esophageal reflux disease without esophagitis; F17.290 Nicotine dependence, other tobacco product, uncomplicated
CPT/HCPCS: 58661; 36415; 80053; 81001; 81025; 84703; 85025; 86850; 86900; 88302; 96365; J0690; J1100; J1200; J1885; J2250; J2405; J2704; J2710; J3010; J3490; J7030; J7040

== ENCOUNTER → 2021-08-22 13:16 | Outpatient (BNVA) | payer BC, MEDICAID, SELFPAY | PROVIDERS: PCP Nurse Practitioner Family; Visit Provider Obstetrics & Gynecology | DX: Z32.01 Encounter for pregnancy test, result positive (principal) | CPT/HCPCS: 84702 ==

== ENCOUNTER 2021-08-23 12:16 | Emergency (ER) | payer BC, MEDICAID, SELFPAY ==
[2021-08-23 14:23] VITALS: BP 106/71; PULSE 78; RESP 13; TEMP 36.7; O2SAT 100; BMI 31.0
--- NOTE | 2021-08-23 14:36 | US_ITS ---
WS: [id number] ULTRASOUND OB COMPLETE TECHNIQUE: Complete ultrasound. CLINICAL INFORMATION: positive preg; hx of salpingectomy COMPARISON: None. FINDINGS: Cervix measures 5.1 cm Single interuterine gestation is identified with transverse presentation. Placenta is fundal. Placenta grade 0. Normal amniotic fluid volume. YEIMY 16.9 cm cardiac activity: 147 BPM. AGA: 22 weeks 2 days BEN by ultrasound: December 25, 2021 Estimated weight: 521 g BDP: 5.1 cm = 21 weeks 3 days HC: 19.8 cm = 22 weeks 0 days AC: 17.3 cm = 22 weeks 2 days FEMUR LENGTH: 4.1 cm = 23 weeks 3 days Anatomic survey: Anatomic survey is normal. Normal stomach. Kidneys and bladder are normal. Normal 3 vessel cord. Norm al 3 vessel cord insertion. Normal 4 chamber heart. Normal spine. Intracranial contents are normal. N ormal posterior fossa and cisterna magna. US/US OB >= 14 weeks fetus [id number] IMPRESSION: 1. Single intrauterine with visualized cardiac activity. AGA 22 week s 2 days with BEN December 25, 2021. 2. Placenta is fundal No evidence of abruption or previa. 3. anatomic survey is normal. 4. Normal amniotic fluid volume.
--- NOTE | 2021-08-23 14:37 | W.ED.GENADLT ---
HPI - General Adult General: Chief complaint: General Medical Stated complaint: needs ultrasound PFSH ED PFSH: Medical History Herpes Surgical History (Updated 05/23/21 @ 08:55 by Elaine Lyles RN) Hx of wisdom tooth extraction (~2015) Family History Denies family history of Colon cancer Ovarian cancer Diabetes Heart disease Hypercholesteremia Breast cancer Hypertension Uterine cancer Thyroid disease Stroke Social History Smoking and tobacco status: current every day smoker (Vape) e-cigarettes E-Cigarette Details: vaporizer device and with nicotine E-cig/vape details: vapes multiple times per day Alcohol intake: never Female Reproductive History: Date of last menstrual period: 03/10/21 Course Vital Signs: Vital signs: Vital Signs Temperature 98.1 F 08/23/21 14:23 Pulse Rate 78 08/23/21 14:23 Respiratory Rate 13 08/23/21 14:23 Blood Pressure 106/71 08/23/21 14:23 Pulse Oximetry 100 08/23/21 14:23 Discharge Plan Discharge Prescriptions: No Action omeprazole 20 mg capsule,delayed release(DR/EC) 20 mg PO DAILY 0RF ibuprofen 800 mg tablet 800 mg PO TID PRN (Reason: pain) Qty: 60 0RF hydrocodone-acetaminophen 5-325 mg tablet 1 tab PO Q4H PRN (Reason: pain) Qty: 10 0RF acetaminophen 325 mg capsule 325 mg PO Q4H PRN (Reason: fever or pain) Qty: 60 0RF Coding Level of Care Code ED Radio Maintainer for Brent Rapp
--- NOTE | 2021-08-23 14:38 | W.ED.FEMALGU ---
HPI - Female Genitourinary General: Chief complaint: General Medical Stated complaint: needs ultrasound Time Seen by Provider: 08/23/21 14:38 Source: patient Mode of arrival: ambulatory Limitations: no limitations History of Present Illness: Patient is a 31-year-old female who was recommended to come to the ED for an ultrasound to evaluate/rule out ectopic . Patient states he had a bilateral salpingectomy in March of this year for desired permanent sterilization. She states her last menstrual period was April 10 of this year. She states a few months ago she began noticing some emotional lability and more recently some weight gain thus prompting her to take a test recently and states this was positive. She had an hCG performed at the women[facility] health clinic recently which was roughly 9000. Patient denies pelvic pain. She is not having any vaginal bleeding or discharge. MD elicited complaint: suspected Associated symptoms: Deny abdominal pain, nausea or vaginal discharge Date of Last Menstrual Period: 03/10/21 Review of Systems Const: Denies: fever(s), chills, body aches, fatigue or malaise Card: Denies: chest pain Resp: Denies: dyspnea GI: Denies: abdominal pain, nausea, vomiting or diarrhea : Denies: flank pain, dysuria, vaginal odor, vaginal bleeding, vaginal discharge or pelvic pain Musc: Denies: back pain Skin/Breast: Denies: rash Neuro: Denies: dizziness PFSH ED PFSH: Medical History Herpes Surgical History Hx of wisdom tooth extraction (~2015) Family History Denies family history of Colon cancer Ovarian cancer Diabetes Heart disease Hypercholesteremia Breast cancer Hypertension Uterine cancer Thyroid disease Stroke Social History Smoking and tobacco status: current every day smoker (Vape) e-cigarettes E-Cigarette Details: vaporizer device and with nicotine E-cig/vape details: vapes multiple times per day Alcohol intake: never Female Reproductive History: Date of last menstrual period: 03/10/21 Physical Exam Const: COMMON NORMALS: no acute distress, patient oriented x3, no limitations and alert GENERAL APPEARANCE: cooperative NUTRITIONAL APPEARANCE: overweight ORIENTATION/CONSCIOUSNESS: Yes awake, Yes oriented to person, Yes oriented to place and Yes oriented to time Resp: COMMON NORMALS: normal respiratory effort and clear to auscultation bilaterally AUSCULTATION: clear to auscultation bilaterally Cardio: COMMON NORMALS: regular rate and regular rhythm RATE: regular rate RHYTHM: regular rhythm GI: COMMON NORMALS: Normal to inspection, nondistended, normoactive bowel sounds present, Soft to palpation, non-tender, No hepatosplenomegaly present and no masses PALPATION: Yes Soft to palpation and Yes No hepatosplenomegaly present : COMMON NORMALS: Yes no CVA tenderness BLADDER/KIDNEY EXAM: Yes no CVA tenderness Back/Pelvis: COMMON NORMALS: no CVA tenderness Extremity: COMMON NORMALS: normal to inspection GENERAL: Yes normal exam except as noted Neuro: PAMELA COMA SCALE: document GCS findings Pamela coma scale eye opening: Spontaneous [place] coma scale verbal response: Orientated [place] coma scale motor response: Obey commands [place] coma scale total score: 15 COMMON NORMALS: patient oriented x3 SENSORIUM/ORIENTATION: Yes alert, Yes oriented to person, Yes oriented to place and Yes oriented to time Course Vital Signs: Vital signs: Vital Signs Temperature 98.1 F 08/23/21 14:23 Pulse Rate 78 08/23/21 14:23 Respiratory Rate 13 08/23/21 14:23 Blood Pressure 106/71 08/23/21 14:23 Pulse Oximetry 100 08/23/21 14:23 MDM - Female Medical Decision Making Patient's ultrasound shows a live 22-week today. She is not having any abdominal or pelvic pain. No vaginal bleeding or leaking of fluids. Patient initially had blood work/UA ordered these were very lengthy in time to be collected and ultimately canceled as they would not change any form of management from our end. Patient needs to follow-up with women's health as soon as possible as she is behind in OB care at this point. Patient verbalizes understanding. Lab Data Radiology Impressions Ultrasound 08/23/21 14:36 IMPRESSION: 1. Single intrauterine with visualized cardiac activity. AGA 22 weeks 2 days with BEN December 25, 2021. 2. Placenta is fundal No evidence of abruption or previa. 3. anatomic survey is normal. 4. Normal amniotic fluid volume. Discharge Plan Discharge Patient Disposition: Home Clinical Impression: Second trimester Condition: Stable Prescriptions: No Action omeprazole 20 mg capsule,delayed release(DR/EC) 20 mg PO DAILY 0RF ibuprofen 800 mg tablet 800 mg PO TID PRN (Reason: pain) Qty: 60 0RF hydrocodone-acetaminophen 5-325 mg tablet 1 tab PO Q4H PRN (Reason: pain) Qty: 10 0RF acetaminophen 325 mg capsule 325 mg PO Q4H PRN (Reason: fever or pain) Qty: 60 0RF Discharge Orders: Discharge ED (Routine); Ordered 08/23/21 Ordered By: Jaki Nolasco Referrals: Rosalee Rahman DIRECTOR OF RETAIL OPERATIONS [Primary Care Provider] - Coding Level of Care Code ED Program Aide Group Work for Chg Fwd Exam Detailed
== END 2021-08-23 17:30 | disposition home or self-care (01) ==
PROVIDERS: Emergency Provider Physician Assistant; PCP Nurse Practitioner Family
DX: O09.32 Supervision of pregnancy with insufficient antenatal care, second trimester (principal); Z3A.22 22 weeks gestation of pregnancy; Z90.79 Acquired absence of other genital organ(s)
CPT/HCPCS: 76805; 99283

== ENCOUNTER → 2021-08-25 11:23 | Outpatient (BNVA) | payer BC, MEDICAID, SELFPAY | PROVIDERS: PCP Nurse Practitioner Family; Visit Provider Obstetrics & Gynecology | DX: Z34.90 Encounter for supervision of normal pregnancy, unspecified, unspecified trimester (principal); Z12.4 Encounter for screening for malignant neoplasm of cervix | CPT/HCPCS: 80307; 81000; 85027; 86592; 86762; 86803; 86850; 86900; 87086; 87340; 87491; 87591; 88175 ==

== ENCOUNTER → 2021-09-22 08:50 | Outpatient (BNVA) | payer BC, MEDICAID, SELFPAY | PROVIDERS: PCP Nurse Practitioner Family; Visit Provider Obstetrics & Gynecology | DX: Z34.80 Encounter for supervision of other normal pregnancy, unspecified trimester (principal) | CPT/HCPCS: 81000; 82950; 85027 ==

== ENCOUNTER → 2021-10-02 08:25 | Outpatient (BNVA) | payer BC, MEDICAID, SELFPAY | PROVIDERS: PCP Nurse Practitioner Family; Visit Provider Obstetrics & Gynecology | DX: O99.891 Other specified diseases and conditions complicating pregnancy (principal); R10.9 Unspecified abdominal pain; Z3A.00 Weeks of gestation of pregnancy not specified | CPT/HCPCS: 81000; 82951; 82952 ==

== ENCOUNTER → 2021-10-06 10:24 | Outpatient (BNVA) | payer BC, MEDICAID, SELFPAY | PROVIDERS: PCP Nurse Practitioner Family; Visit Provider Obstetrics & Gynecology | DX: Z34.93 Encounter for supervision of normal pregnancy, unspecified, third trimester (principal) | CPT/HCPCS: 81000 ==

== ENCOUNTER → 2021-10-24 10:30 | Outpatient (BNVA) | payer BC, MEDICAID, SELFPAY | PROVIDERS: PCP Nurse Practitioner Family; Visit Provider Obstetrics & Gynecology | DX: Z34.93 Encounter for supervision of normal pregnancy, unspecified, third trimester (principal) | CPT/HCPCS: 81000 ==

== ENCOUNTER → 2021-11-07 13:39 | Outpatient (BNVA) | payer BC, MEDICAID, SELFPAY | PROVIDERS: PCP Nurse Practitioner Family; Visit Provider Nurse Practitioner Women's Health | DX: Z34.93 Encounter for supervision of normal pregnancy, unspecified, third trimester (principal) | CPT/HCPCS: 81000 ==

== ENCOUNTER → 2021-11-27 11:21 | Outpatient (BNVA) | payer BC, MEDICAID, SELFPAY | PROVIDERS: PCP Nurse Practitioner Family; Visit Provider Obstetrics & Gynecology | DX: Z34.93 Encounter for supervision of normal pregnancy, unspecified, third trimester (principal) | CPT/HCPCS: 80307; 81000; 87081 ==

== ENCOUNTER 2021-12-04 03:01 | Inpatient (IN) | payer BC, MEDICAID, SELFPAY ==
[2021-12-04] VITALS (69 sets, daily range): BP systolic 94–159; BP diastolic 51–85; PULSE 57–88; RESP 15–18; TEMP 36.3–36.7; O2SAT 97–100; BMI 32.9
[2021-12-04 02:26] LABS: Nitrazine Paper, PH Inconclusive
[2021-12-04 02:41] LABS: Actim Prom Positive
[2021-12-04 03:52] LABS: Basophils % 0.4 %; Eosinophils # 0.4 10^3/uL (0.0-0.8); Eosinophils % 4.6 %; Hematocrit 32.7 % (37.0-47.0); Hemoglobin 10.9 g/dL (11.5-15.3); Lymphocytes # 2.5 10^3/uL (0.8-4.8); Lymphocytes % 31.6 %; Mean Corpuscular HGB Conc 33.3 g/dL (30.0-36.0); Mean Corpuscular Hemoglobin 29.9 pg (28.0-34.0); Mean Corpuscular Volume 89.8 fl (81-99); Mean Platelet Volume 12.3 fL (7.4-10.4); Monocytes # 0.8 10^3/uL (0.2-0.9); Monocytes % 9.6 %; Neutrophils # 4.25 10^3/uL (1.8-7.7); Neutrophils % 53.3 %; Nucleated Red Blood Cells % 0 %; Platelet Count 232 10^3/cmm (130-400); Red Blood Count 3.64 10^6/uL (4.1-5.3); Red Cell Distribution Width 12.6 % (12.1-15.1)
--- NOTE | 2021-12-04 08:09 | PM.OPHPUD ---
Labor & Delivery H&P Update Date of Procedure: December 05, 2021 Date H&P Performed: 11/27/21 H&P update information: I have reviewed H&P completed within last 30 days, I have examined patient prior to procedure and No changes to prior documentation Admission Diagnosis: Preop diagnosis: Desires permanent sterilization
[2021-12-04] MEDS: miSOPROStol 100 mcg tablet 25 MCG VAGINAL (08:29)
[2021-12-04] MEDS: fentaNYL 50 mcg/mL INJ 2mL IVP ×2 (12:29→13:45)
[2021-12-04] MEDS: dextrose 5%-lactated ringers 1,000 ML 125 ML IV ×2 (12:29→16:21)
[2021-12-04] MEDS: lactated ringers 1,000 ML 999 ML IV ×2 (13:37→14:44)
--- NOTE | 2021-12-04 14:26 | PC.NURSE ---
Dr Crabtree called for epidural placement
--- NOTE | 2021-12-04 15:01 | ANES.PREANE2 ---
Pre-Anesthetic Assessment Height/Weight: Height 1.63 m Weight 87.09 kg Temp Pulse Resp BP Pulse Ox O2 Del Method 97.8 F 61 17 113/62 100 12/04/21 12:35 12/04/21 14:57 12/04/21 13:45 12/04/21 14:57 12/04/21 14:53 12/04/21 03:13 Preop Diagnosis: Desires permanent sterilization Epidural Familial anesthetic complications: None Was Beta Jacob taken within 24 hours: N/A Was Clonidine taken within 24 hours: N/A Last intake: > 8hrs Social No alcohol and No tobacco Exam alert, oriented x 3, clear to auscultation bilaterally and regular rate & rhythm Airway Mallampati: Class II Dentition: full GI Gastroesophageal Reflux Disease Anesthetic Plan ASA status: 2 Anesthesia: Regional (specify below) Risk of > 500 ml blood loss (7ml/kg in children): Yes, adequate IV access and fluids planned Medications/Allergies Home Medications Medication Instructions Recorded Confirmed Last Taken Type prenat.vits,audi,cls-lysw-kcvlq 1 tab PO DAILY 08/25/21 12/04/21 12/03/21 08:00 History calcium carbonate 200 mg calcium 200 mg PO BID PRN out break 11/07/21 12/04/21 Unknown History (500 mg) chewable tablet (Tums) famotidine 20 mg tablet 20 mg PO BID #60 tabs 11/07/21 12/04/21 12/02/21 Rx valacyclovir 500 mg tablet 500 mg PO BID #60 tabs 11/27/21 11/27/21 Unknown Rx Allergies Allergy/AdvReac Type Severity Reaction Status Date / Time No Known Allergies Allergy Verified 11/27/21 11:24 Current Medications Generic Name Dose Route Start Last Admin Trade Name Freq PRN Reason Stop Dose Admin Fentanyl 25 - 100 mcg 12/04/21 11:45 12/04/21 13:45 Fentanyl 50 Mcg/Ml Inj 2ml IVP 50 mcg Q1H PRN Administration SEVERE PAIN Dextrose/Lactated Ringer's 1,000 mls @ 125 mls/hr 12/04/21 03:15 12/04/21 13:46 Dextrose 5%-Lactated Ringers IV Infused .Q8H TYE Infusion Ropivacaine 200 mg in 100 mls @ 13 mls/hr 12/04/21 12:00 12/04/21 14:44 Naropin Premix EPIDURAL 13 mls/hr .Q7H42M TYE Administration Lactated Ringer's 1,000 mls @ 999 mls/hr 12/04/21 11:47 12/04/21 14:44 Lactated Ringers IV 999 mls/hr .Q1H1M PRN Administration See label comments [facility] Anesthesia Medical History (Updated 11/07/21 @ 14:11 by Helena Garrido APN, PHILIP) Herpes Surgical History (Updated 11/07/21 @ 14:01 by Helena Garrido APN, PHILIP) H/O tubal ligation 04/12/2021- laparoscopic bilateral tubal salpingectomy performed by Dr. Daniel at [facility] of wisdom tooth extraction (~2015) Family History Denies family history of Colon cancer Ovarian cancer Diabetes Heart disease Hypercholesteremia Breast cancer Hypertension Uterine cancer Thyroid disease Stroke Social History Smoking and tobacco status: former smoker Female Reproductive History Date of last menstrual period: 03/10/21 : 6 Data Anesthesia : 12/04/21 03:24 Short CBC 12/04/21 Range/Units 03:24 WBC 8.0 (4.0-10.0) 10^3/uL Hgb 10.9 L (11.5-15.3) g/dL Hct 32.7 L (37.0-47.0) % MCV 89.8 (81-99) fl Plt Count 232 (130-400) 10^3/cmm Neut % (Auto) 53.3 % Neut # (Auto) 4.25 (1.8-7.7) 10^3/uL Cardiac Studies: No Data to Display
--- NOTE | 2021-12-04 15:02 | ANES.PROC ---
Anesthesia Procedures Procedure/Date: 12/04/21 Epidural: Time Out Performed: Yes Consents Signed: Procedure Consent Consent: requested by attending/covering physician, from patient, risks and benefits reviewed and patient agrees to proceed Lumbar Level: L3-L4 Epidural position: sitting Epidural procedure: sterile prep of area, 1% lidocaine to numb the area, 18 g needle, negative for paresthesia passed, neg for paresthesia, test dose given, 1.5% xylocaine 1:200k epi (2% lidocaine w/ 1:200k epi (3 cc test dose)), 0.2% Ropivacaine bolus ml (5 m,l), placed PCEA, no systemic response, sterile dressing applied, L.U.D. no apparent complications and 0.2% Ropiavacaine @ mls/hr (13) Additional Comments: RIVKA at 5 cm, threaded to 11 cm
[2021-12-04] MEDS: oxytocin 30 UNIT/500 ML BAG 600 UNIT IV (17:08)
--- NOTE | 2021-12-04 17:18 | PM.DELIVERY ---
Delivery Note: Date of delivery: December 04, 2021 Pre-delivery diagnoses: Term . PreLabor rupture of membranes Post-delivery diagnoses: Same as above Procedure: Spontaneous vaginal delivery Delivering Physician: Yovanny Daniel MD Estimated blood loss (mL): 100 Pre-Delivery Course: Ms. Salinas is a 31 year old established patient with an uncertain LMP of 04/06/2021 and an BEN of 12/25/2021 based on second trimester ultrasound. who has been receiving care from [facility]. She referred rupture of membranes that was confirmed with ActinProm. HPI: Received appropriate care. Daily vitamins since two months prior to conception. labs have all been normal, including negative for HIV. She was found to negative for Group B Strep from screening at 36 weeks. She has gained approximately 13 lbs throughout the . She denies a history of HTN during . Glucose tolerance screening for gestational diabetes was negative. Delivery: The patient was noted to be complete and pushing, so was placed in the dorsal lithotomy position, prepped and draped in the usual sterile fashion for a vaginal delivery. Pt. Noted to have epidural anesthesia. At 1705 the patient delivered a viable female infant weighing 2880 g with scores of 8 and 9 at one and five minutes, respectively. The vertex was delivered spontaneously over intact perineum. The patient was asked to push and the head delivered spontaneously in the [place] position, over an intact perineum. A nuchal cord was checked and none noted. The anterior shoulder delivered easily and the posterior shoulder followed. The remainder of the was easily delivered and the oropharynx and nasopharynx was bulb suctioned. The infant was noted to have spontaneous cry and spontaneous movement of all four extremities. The cord was clamped x 2 and cut and noted to have 2 arteries and one vein. The was passed to the mother's abdomen where nursing personnel were in attendance. The placenta delivered intact spontaneously and the uterus was explored. 20 units of Pitocin was placed in the IV bag to firm the uterus. Examination of the cervix and vaginal vault did not reveal any lacerations. A vaginal pack was then placed. Examination of the perineum showed no lacerations. The vaginal pack was then removed. The patient tolerated this procedure well, and recovered in L&D with her in their LDR room. All sponge and needle counts were correct. History History History 6 Term 3 1 Miscarriages/Ectopic 1 Living Children 4 A&P Assessment and plan (1) Premature rupture of membranes: Prelabor rupture of membrane. Status: Acute (2) Term delivered: Status: Acute Coding Level of Care Code Acute Marketing Developer for Chg Fwd Diagnoses Premature rupture of membranes O42.90 Term delivered O80
[2021-12-04] MEDS: docusate sodium 100 mg Capsule PO (21:17)
[2021-12-04] MEDS: ibuprofen 800 mg tablet PO (21:17)
[2021-12-04] MEDS: HYDROcodone-acetaminophen 5-325 mg Tablet PO (23:25)
[2021-12-05 01:43] VITALS: BP 94/54; PULSE 76; RESP 15; O2SAT 98
[2021-12-05 03:30] VITALS: BP 118/83; PULSE 60; RESP 15; O2SAT 97
[2021-12-05 06:30] LABS: Hemoglobin 10.5 g/dL (11.5-15.3); Mean Corpuscular HGB Conc 32.8 g/dL (30.0-36.0); Mean Corpuscular Volume 91.4 fl (81-99); Mean Platelet Volume 12.5 fL (7.4-10.4); Platelet Count 183 10^3/cmm (130-400); Red Cell Distribution Width 12.5 % (12.1-15.1); White Blood Count 8.8 10^3/uL (4.0-10.0)
--- NOTE | 2021-12-05 08:20 | ANE.PACU2 ---
Inpatient post-anesthesia follow up: Airway intact: Yes Vital signs: Temperature 97.9 F Pulse Rate 60 Respiratory Rate 15 Blood Pressure 118/83 Pulse Oximetry 97 Oxygen Delivery Me thod Room Air Oxygen Flow Rate Fraction of Inspir ed Oxygen Hydration adequate: Yes Nausea and vomiting: No Pain level: 3 Mental status: Baseline Additional Comments: EMR review
[2021-12-05] MEDS: ibuprofen 800 mg tablet PO ×2 (08:51→15:27)
[2021-12-05] MEDS: prenatal vitamin Capsule 1 CAP PO (08:51)
[2021-12-05] MEDS: docusate sodium 100 mg Capsule PO (08:51)
[2021-12-05 10:30] VITALS: BP 121/86; PULSE 78; RESP 17
[2021-12-05] MEDS: HYDROcodone-acetaminophen 5-325 mg Tablet PO (10:52)
[2021-12-05 16:23] VITALS: BP 119/79; PULSE 75; RESP 17; TEMP 36.7
--- NOTE | 2021-12-05 17:28 | P.DS_ITS ---
Discharge Providers JACQUARD LOOM HEDDLES TIER Date of Admission: 12/04/21 03:01 Date of Discharge: 12/05/21 Attending Provider at Admission: Yovanny Daniel MD Attending Provider at Discharge: Yovanny Daniel MD Primary JACQUARD LOOM HEDDLES TIER: Yovanny Daniel MD Primary Care Provider: Rosalee Rahman Diagnoses at Discharge Discharge Diagnosis (1) Premature rupture of membranes: Details from hospital stay: Prelabor rupture of membranes at term. Status: Acute (2) Term delivered: Status: Acute Reason for Visit Reason for Visit: possible SROM Hospital Course Hospital Course Ms. Salinas is a 31 year old established patient with an uncertain LMP of 04/06/2021 and an BEN of 12/25/2021 based on second trimester ultrasound with an estimated gestational age at 39 weeks +2 days. Came to labor and delivery complaining of possible rupture membranes. Upon examination prelabor rupture membranes was confirmed with the ActinPROM test. Misoprostol was given for cervical ripening she progressed to have a spontaneous vaginal delivery without complications. She delivered a viable female infant weighing 2880 g with scores of 8 and 9 at one and five minutes, respectively. laceration was uneventful. She is ambulating without difficulty. Tolerating diet well. She is a status post a spontaneous vaginal delivery day 1 afebrile hemodynamically stable. Information Peripartum Data: Infant Delivery Method: Vaginal Physical Exam Narrative: GA; alert and oriented x 3 HEENT: normal Breasts: engorged Nipples - skin intact Lungs; clear to auscultation Heart: regular rhythm, no murmurs. Abd: Appropriately tender. BS+. Uterine fundus below umbilicus. No Fundal Tenderness. Perineum: normal lochia. Extremities: no edema, no cyanosis, no tenderness. Urinary Catheter Management: Escobar Latex: Cath Placed During This Visit: yes, but has since been removed by the nurse Reason for Continuing Indwelling Catheter: Other Urinary Catheter Date of Insertion: 12/04/21 Urinary Catheter Time of Insertion: 15:20 Date Urinary Catheter Removed: 12/04/21 Time Urinary Catheter Discontinued: 17:02 History History History 6 Term 3 1 Miscarriages/Ectopic 1 Living Children 4 Discharge Data Studies Completed and Pending Laboratory Results WBC 8.8 10^3/uL (4.0-10.0) 12/05/21 05:25 RBC 3.50 10^6/uL (4.1-5.3) L 12/05/21 05:25 Hgb 10.5 g/dL (11.5-15.3) L 12/05/21 05:25 Hct 32.0 % (37.0-47.0) L 12/05/21 05:25 MCV 91.4 fl (81-99) 12/05/21 05:25 MCH 30.0 pg (28.0-34.0) 12/05/21 05:25 MCHC 32.8 g/dL (30.0-36.0) 12/05/21 05:25 RDW 12.5 % (12.1-15.1) 12/05/21 05:25 Plt Count 183 10^3/cmm (130-400) 12/05/21 05:25 MPV 12.5 fL (7.4-10.4) H 12/05/21 05:25 Neut % (Auto) 53.3 % 12/04/21 03:24 Lymph % (Auto) 31.6 % 12/04/21 03:24 Harris % (Auto) 9.6 % 12/04/21 03:24 Eos % (Auto) 4.6 % 12/04/21 03:24 Baso % (Auto) 0.4 % 12/04/21 03:24 Neut # (Auto) 4.25 10^3/uL (1.8-7.7) 12/04/21 03:24 Lymph # (Auto) 2.5 10^3/uL (0.8-4.8) 12/04/21 03:24 Harris # (Auto) 0.8 10^3/uL (0.2-0.9) 12/04/21 03:24 Eos # (Auto) 0.4 10^3/uL (0.0-0.8) 12/04/21 03:24 Baso # (Auto) 0.0 10^3/uL (0.0-0.1) 12/04/21 03:24 Nucleated RBC % (auto) 0 % 12/04/21 03:24 Nucleated RBCs # 0.0 /100WBC 12/04/21 03:24 Insulin-like GF I Positive 12/04/21 02:30 Vitals Last Vital Signs Temp 97.9 F 12/04/21 23:27 Pulse 78 12/05/21 10:30 Resp 17 12/05/21 10:30 BP 121/86 12/05/21 10:30 Pulse Ox 97 12/05/21 03:30 O2 Del Method 12/05/21 10:30 Discharge Plan Discharge Patient Disposition: Home Condition: Good Prescriptions: New acetaminophen 325 mg capsule 325 mg PO Q4H PRN (Reason: fever or pain) Qty: 60 0RF ferrous sulfate [Iron (ferrous sulfate)] 325 mg (65 mg iron) tablet 325 mg PO BID Qty: 60 0RF ibuprofen 800 mg tablet 800 mg PO TID PRN (Reason: pain) Qty: 60 0RF Continued prenat.vits,audi,hik-izew-oikcw Tablet 1 tab PO DAILY calcium carbonate [Tums] 200 mg calcium (500 mg) tablet,chewable 200 mg PO BID PRN (Reason: out break) Label Comments: stated that she has not started medication at this time famotidine 20 mg tablet 20 mg PO BID Qty: 60 3RF valacyclovir 500 mg tablet 500 mg PO BID Qty: 60 1RF Discharge Orders: Discharge Order (Routine); Ordered 12/05/21 Ordered By: Yovanny Daniel Referrals: Yovanny Daniel MD [Physician] - 6 Weeks (your 6 week follow up is 01/15/2022 @ 2:30pm ) Discharge Diet: Advance as tolerated Discharge Activity: Limit activity as instructed Patient Instructions: Depression (DC), Bleeding (DC), Preeclampsia and Eclampsia After Delivery (GEN), OB Discharge Report, OB Food/Drug Interaction Guide, Opioid Safety, OB Home Care, OB Vaginal Deliveries - [facility] Activity Restrictions/Additional Instructions: 1. Please call [facility] clinic on next working day to make your appointment in 6 weeks. 2. Please stay home until you come back to the clinic on first post-operative check up. 3. Please follow instructions on your medications CAREFULLY. 4. If you have abdominal incision, do not cover it unless dressing is necessary because of drainage. OK to shower, but avoid bath. Leave steri-strips until they fall off. If they are still on one week after surgery, you may remove them. 5. If you had vaginal surgery or vaginal repair, Dr. Albino may instruct you to take SITZ bath. 6. Yellow, blood tinged odorous vaginal discharge is usually normal after hysterectomy or vaginal surgeries. 7. No sexual intercourse, tampons, or douches until you are completely released from the post-operative care. 8. Avoid constipation by eating right and maybe using some Metamucil or Milk of Magnesia. 9. All prescription refills are given during the working hours. Please do no wait till it runs out. Call the clinic at [phone] before your medication runs out. The clinic will get in touch with your doctor to prescribe medications if necessary. 10. Please remain within 40 mile radius from our hospital because emergencies do happen now and then during the post-operative period. 11. If you have stairs at home, take one step at a time slowly and minimize the number of trips. It helps to stay in one floor for the next few days. No lifting except what you can lift by one hand until you are released from the post-operative care. 12. Driving is discouraged until you are well healed. It may be 3-4 weeks before you feel strong enough to drive. You should be able to turn and look through the rear window without pain and you should be able to push the brake pedal very hard without pain before you drive. No fast rules, but SAFETY should be your primary concern. DO NOT drive if you are on sedating medications such as narcotics. 13. Call the clinic (during working hours) to make urgent appointment or go to the Emergency room, if any of the following occurs: i. Vaginal bleeding becomes heavy, more than a period. ii. Incision becomes red and sore, or drains pus. iii. Your temperature is over 100.4 or you have chill. iv. IV site becomes red and swollen (a little ``knot?? is usually OK) v. Persistent nausea and vomiting vi. Persistent constipation or diarrhea vii. Rash or allergic reaction to medications. Discharge Attestations JACQUARD LOOM HEDDLES TIER Time Spent in Discharge Care*: greater than 30 min Coding Level of Care Code Acute Surgical Elastic Knitter Hand Frame for [place] Tamela Diagnoses Premature rupture of membranes O42.90 Term delivered O80
[2021-12-05 19:50] VITALS: BP 128/83; PULSE 73; RESP 17; TEMP 36.6; TEMP 36.7; O2SAT 99
== END 2021-12-05 20:00 | disposition home or self-care (01) | DRG 806 ==
LOC: OPOB 03:01 → OBGYN 03:01
PROVIDERS: Admitting Provider Obstetrics & Gynecology; PCP Nurse Practitioner Family; Visit Provider Obstetrics & Gynecology
DX: O42.02 Full-term premature rupture of membranes, onset of labor within 24 hours of rupture (principal); O98.52 Other viral diseases complicating childbirth; Z37.0 Single live birth; B00.9 Herpesviral infection, unspecified; O99.62 Diseases of the digestive system complicating childbirth; K21.9 Gastro-esophageal reflux disease without esophagitis; Z87.891 Personal history of nicotine dependence; Z86.59 Personal history of other mental and behavioral disorders; Z3A.37 37 weeks gestation of pregnancy
CPT/HCPCS: 36415; 51702; 59025; 59409; 83986; 84112; 85025; 85027; 99211; J2795; J3010

== ENCOUNTER 2023-05-22 02:27 | Emergency (ER) | payer BC, MEDICAID, SELFPAY ==
[2023-05-22 02:31] VITALS: BP 138/77; PULSE 76; RESP 18; TEMP 36.8; O2SAT 97; BMI 31.7
[2023-05-22 02:34] VITALS: BP 110/67; PULSE 65; RESP 14; O2SAT 96
[2023-05-22] MEDS: LORazepam 0.5 mg Tablet PO (03:00)
--- NOTE | 2023-05-22 03:00 | W.ED.ANXIETY ---
HPI - Anxiety General: Chief Complaint: Anxiety Stated Complaint: Panic attacks Time Seen by Provider: 05/22/23 02:43 History of Present Illness: Patient presents to the ER with complaints of having panic attacks. Patient says these panic attacks started around 6 PM last night and she is been having multiple ones that have been escalating in severity. They have been giving her anxiety jitters shortness of breath chest tightness. Patient drank an energy drink before they started and thinks that may have triggered it patient reports no new stress. Patient is not on any daily medicine for these. Patient has been having these since she was 20 years old but this is the longest string and most severe when she has had. Patient is sitting in bed in no acute distress resting comfortably when I entered the room. Review of Systems General: Reports: 10 or more systems reviewed and unremarkable except in HPI and below PFSH ED PFSH: Medical History Herpes Surgical History H/O tubal ligation 04/12/2021- laparoscopic bilateral tubal salpingectomy performed by Dr. Daniel at [facility] Hx of wisdom tooth extraction (~2016) Family History Denies family history of Colon cancer Ovarian cancer Diabetes Heart disease Hypercholesteremia Breast cancer Hypertension Uterine cancer Thyroid disease Stroke Social History Smoking and tobacco/nicotine status: former use of tobacco/nicotine Substance/Drug Use: former Date of last use: 7-8 months ago Female Reproductive History: Date of last menstrual period: 05/10/23 Physical Exam Const: COMMON NORMALS: no acute distress, average body habitus, patient oriented x3, no limitations, healthy appearing, alert and well nourished Neck/C-Spine: COMMON NORMALS: no JVD Chest: COMMONS NORMALS: normal inspection of the chest and normal palpation of entire chest wall Resp: COMMON NORMALS: normal respiratory effort, No retractions, No use of accessory muscles and clear to auscultation bilaterally AUSCULTATION: clear to auscultation bilaterally Cardio: COMMON NORMALS: no JVD, regular rate, regular rhythm, S1 normal heart sound present, S2 normal heart sound present, No gallops present (Cardio), No clicks present (Cardio), No murmurs present (Cardio) and No rub (Cardio) RATE: regular rate RHYTHM: regular rhythm HEART SOUNDS: S1 normal heart sound present and S2 normal heart sound present GI: COMMON NORMALS: Normal to inspection, nondistended, normoactive bowel sounds present, Soft to palpation, non-tender, No hepatosplenomegaly present and no masses PALPATION: Yes Soft to palpation and Yes No hepatosplenomegaly present Neuro: COMMON NORMALS: patient oriented x3 SENSORIUM/ORIENTATION: Yes alert Course Vital Signs: Vital signs: Vital Signs Temperature 98.3 F 05/22/23 02:31 Pulse Rate 59 L 05/22/23 03:47 Respiratory Rate 15 05/22/23 03:47 Blood Pressure 119/61 05/22/23 03:47 Pulse Oximetry 94 05/22/23 03:47 Oxygen Delivery Me thod Room Air 05/22/23 03:21 MDM - Anxiety Medical Decision Making Appears patient is having escalating anxiety and panic attacks. We will give the patient 0.5 mg of Ativan p.o. and see how she does. Patient is doing good patient be discharged home. Differential Diagnosis Likely panic disorder and acute anxiety Medical Records I reviewed the patient's medical records. Lab Data I reviewed the patient's lab results. No radiology studies performed this visit Discharge Plan Discharge Patient Disposition: Home Clinical Impression: Acute anxiety, Panic disorder Condition: Stable Prescriptions: No Action prenat.vits,audi,[id number] Tablet 1 tab PO DAILY calcium carbonate [Tums] 200 mg calcium (500 mg) tablet,chewable 200 mg PO BID PRN (Reason: out break) Patient Comments: stated that she has not started medication at this time famotidine 20 mg tablet 20 mg PO BID Qty: 60 3RF valacyclovir 500 mg tablet 500 mg PO BID Qty: 60 1RF ibuprofen 800 mg tablet 800 mg PO TID PRN (Reason: pain) Qty: 60 0RF Iron (ferrous sulfate) 325 mg (65 mg iron) tablet 325 mg PO BID Qty: 60 0RF acetaminophen 325 mg capsule 325 mg PO Q4H PRN (Reason: fever or pain) Qty: 60 0RF Discharge Orders: Discharge ED (Routine); Ordered 05/22/23 Ordered By: Thad Vazquez Referrals: Karrie Shaw DO [Primary Care Provider] - Patient Instructions: Anxiety (ED), Panic Attack (ED) Activity Restrictions/Additional Instructions: Please follow-up with your family practice physician for further evaluation and treatment as you may benefit from anxiety medicine. Coding Level of Care Code ED Director Of Slot Operations for Brent Rapp
[2023-05-22 03:21] VITALS: BP 100/60; PULSE 66; RESP 16; O2SAT 97
[2023-05-22 03:47] VITALS: BP 119/61; PULSE 59; RESP 15; O2SAT 94
== END 2023-05-22 03:53 | disposition home or self-care (01) ==
PROVIDERS: Emergency Provider Emergency Medicine; PCP Family Medicine
DX: F41.9 Anxiety disorder, unspecified (principal); F41.0 Panic disorder [episodic paroxysmal anxiety]; Z87.891 Personal history of nicotine dependence
CPT/HCPCS: 99283

== ENCOUNTER 2024-08-13 09:57 | Day surgery (SDC) | payer OTHER, BC, MEDICAID, SELFPAY ==
[2024-08-13 10:26] LABS: OR HCG Qualitative Urine Negative (Negative)
[2024-08-13 10:28] VITALS: BP 116/67; PULSE 64; RESP 16; TEMP 36.4; O2SAT 98; BMI 36.0
--- NOTE | 2024-08-13 10:34 | W.PM.OPSUD ---
Surgery/Procedure H&P Update DATE OF PROCEDURE: August 13, 2024 DATE H&P PERFORMED: 07/30/24 H&P UPDATE INFORMATION: I have reviewed H&P completed within last 30 days, I have examined patient prior to procedure, No changes to prior documentation, Changes to prior documentation as noted here and Risks and benefits of the procedure reviewed PLANNED PROCEDURE: Operation Date: 08/13/24 11:30 Proposed Procedures p EGD Dilation W/ Balloon 91967 R13.10(Not Applicable) - Gamal Angeles MD
[2024-08-13] MEDS: sodium chloride 0.9% 1,000 ML 15 ML IV (10:35)
--- NOTE | 2024-08-13 10:57 | P.ANESASSM_ITS ---
Pre-Anesthetic Assessment Height/Weight: Height 1.63 m Weight 95.254 kg Temp Pulse Resp BP Pulse Ox O2 Del Method 97.6 F 64 16 116/67 98 Room Air 08/13/24 10:28 08/13/24 10:28 08/13/24 10:28 08/13/24 10:28 08/13/24 10:28 08/13/24 10:28 Preop Diagnosis: dysphagia Operation Date: 08/13/24 11:30 Proposed Procedures p EGD Dilation W/ Balloon [id number] R13.10(Not Applicable) - Gamal Angeles MD Familial anesthetic complications: none Was Beta Jacob taken within 24 hours: N/A Was Clonidine taken within 24 hours: N/A Last intake: Intake Last Liquid Date 08/12/24 Last Liquid Time 19:00 Last Solid Date 08/12/24 Last Solid Time 19:00 Social No alcohol and No tobacco Exam alert, oriented x 3, clear to auscultation bilaterally and regular rate & rhythm Airway Cervical ROM: within normal limits Mallampati: Class II Dentition: full History/ROS No significant complaints Pulmonary None reported CV/HEM None reported None reported Hepatic None reported GI None reported Metabolic None reported Musc/skel None reported Neuropsych None reported Anesthetic Plan ASA status: 1 Anesthesia: MAC Risk of > 500 ml blood loss (7ml/kg in children): No Medications/Allergies Home Medications ?Medication ?Instructions ?Recorded ?Confirmed ?Last Taken ?Type hydroxyzine HCl 10 mg tablet 10 mg PO TID PRN Anxiety 07/30/24 08/13/24 Unknown History Allergies Allergy/AdvReac Type Severity Reaction Status Date / Time No Known Allergies Allergy Verified 08/11/24 10:10 Current Medications Generic Name Dose Route Start Last Admin Trade Name Freq PRN Reason Stop Dose Admin Sodium Chloride 1,000 mls @ 15 mls/hr 08/13/24 10:02 08/13/24 10:35 Sodium Chloride 0.9% IV 08/14/24 10:01 15 mls/hr .Q24H PRN Administration COLONOSCOPY FLUIDS PFSH Anesthesia Medical History Herpes Surgical History H/O tubal ligation 04/12/2021- laparoscopic bilateral tubal salpingectomy performed by Dr. Daniel at [facility] Hx of wisdom tooth extraction (~2016) Family History Denies family history of Colon cancer Ovarian cancer Diabetes Heart disease Hypercholesteremia Breast cancer Hypertension Uterine cancer Thyroid disease Stroke Social History (Updated 07/30/24 @ 14:55 by THOMAS Cardenas) Smoking and tobacco/nicotine status: former use of tobacco/nicotine Substance/Drug Use: former Date of last use: 7-8 months ago Female Reproductive History Date of last menstrual period: 07/17/24 Data Anesthesia Cardiac Studies: Holter Monitor 06/06/23
[2024-08-13 11:45] VITALS: BP 95/64; PULSE 83; RESP 18; TEMP 36.2; O2SAT 96
[2024-08-13 11:56] VITALS: BP 106/70; PULSE 67; RESP 18; TEMP 36.2; O2SAT 93
--- NOTE | 2024-08-13 12:30 | ANE.PACU2 ---
Inpatient post-anesthesia follow up: Vital signs: Temperature 97.1 F Pulse Rate 67 Respiratory Rate 18 Blood Pressure 106/70 Pulse Oximetry 93 Oxygen Delivery Me thod Room Air Oxygen Flow Rate Fraction of Inspir ed Oxygen
== END 2024-08-13 12:28 | disposition home or self-care (01) ==
PROVIDERS: Anesthesiology; PCP Family Medicine; Visit Provider Surgery
DX: K22.70 Barrett's esophagus without dysplasia (principal); K20.0 Eosinophilic esophagitis; K29.30 Chronic superficial gastritis without bleeding; B96.81 Helicobacter pylori [H. pylori] as the cause of diseases classified elsewhere; Z87.891 Personal history of nicotine dependence
CPT/HCPCS: 43239; 81025; 88305; 88342; J2704; J7030

== ENCOUNTER 2024-12-02 22:39 | Emergency (ER) | payer OTHER, BC, MEDICAID, SELFPAY ==
[2024-12-02 22:43] VITALS: BP 130/90; PULSE 82; RESP 17; TEMP 36.7; O2SAT 99; BMI 35.0
--- NOTE | 2024-12-02 22:49 | ECG_ITS ---
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 Measurements Intervals [place] Rate: 95 P: 63 WI: 144 QRS: 83 QRSD: 95 T: 41 QT: 372 QTc: 469 Interpretive Statements SINUS RHYTHM WITH SINUS ARRHYTHMIA NONSPECIFIC ST & T-WAVE ABNORMALITY No previous ECG available for comparison Electronically Signed On 12-02-2024 23:28:10 CDT by Shravan Vallecillo M.D. [email or web address]
[2024-12-02 23:34] VITALS: BP 137/77; PULSE 76; RESP 16; O2SAT 95
[2024-12-02 23:44] VITALS: BP 129/77; PULSE 81; O2SAT 97
--- NOTE | 2024-12-02 23:58 | ED_ITS ---
HPI - Chest Pain 2 General: Chief Complaint: Chest Pain Stated Complaint: pressure building in chest SOB new medicine Time Seen by Provider: 12/02/24 23:53 History of Present Illness: 34 yo F with Hx of anxiety/panic attacks presents with a day of nonpainful but persistent chest pressure described as a ?rock/bubble? sensation in the chest/esophagus between the shoulder blades, with difficulty taking a satisfying breath. Symptoms transiently ease with burping but recur. Reports SOB when lying down. Had COVID ~2 weeks ago. Has been largely bed-bound for a few weeks. Today had intermittent nausea and lightheadedness with ?weird? vision and dizziness; nausea comes and goes. Denies smoking. States this episode feels different from prior panic attacks. Rates pressure ~5/10. Declined symptomatic meds initially. Last dose of Zepbound on Saturday. Related Data Home Medications ?Medication ?Instructions ?Recorded ?Confirmed hydroxyzine HCl 10 mg tablet 10 mg PO TID PRN Anxiety 07/30/24 09/01/24 Previous Rx's ?Medication ?Instructions ?Recorded amoxicillin 500 mg capsule 500 mg PO BID 2 weeks #28 c aps 09/01/24 clarithromycin 500 mg tablet 500 mg PO BID 2 weeks #28 tabs 09/01/24 pantoprazole 40 mg tablet,delayed 40 mg PO BID 2 weeks #28 tabs 09/01/24 release Allergies Allergy/AdvReac Type Severity Reaction Status Date / Time No Known Allergies Allergy Verified 09/01/24 14:13 [facility] ED 2 PFSH: Medical History (Updated 12/03/24 @ 02:16 by Adan Malcolm MD) Herpes Surgical History H/O tubal ligation 04/12/2021- laparoscopic bilateral tubal salpingectomy performed by Dr. Daniel at [facility] Hx of wisdom tooth extraction (~2015) Family History Denies family history of Colon cancer Ovarian cancer Diabetes Heart disease Hypercholesteremia Breast cancer Hypertension Uterine cancer Thyroid disease Stroke Social History Smoking and tobacco/nicotine status: former use of tobacco/nicotine Substance/Drug Use: former Date of last use: 7-8 months ago Physical Exam 2 Const: COMMON NORMALS: no acute distress, patient oriented x3 and alert HENMT: COMMON NORMALS: normocephalic and atraumatic HEAD & SCALP: n ormocephalic and atraumatic Eye: COMMON NORMALS: Equal, round and reactive pupils present, EOMs intact bilaterally and no scleral icterus PUPIL: Yes Equal, round and reactive pupils present Chest: OTHER: Chest pain not worsened by deep inspiration. Chest wall palpation does not reproduce or worsen pain. Resp: COMMON NORMALS: normal respiratory effort and No retractions Cardio: COMMON NORMALS: regular rate and regular rhythm RATE: regular rate RHYTHM: regular rhythm GI: COMMON NORMALS: Normal to inspection, nondistended, normoactive bowel sounds present, Soft to palpation and non-tender PALPATION: Yes Soft to palpation Neuro: COMMON NORMALS: patient oriented x3 SENSORIUM/ORIENTATION: Yes alert Skin: COMMON NORMALS: no rashes or lesions noted GENERAL SKIN EXAM: no rashes or lesions noted Course 2 Vital Signs: Vital signs: Vital Signs Temperature 98.0 F 12/02/24 22:43 Pulse Rate 93 12/03/24 02:00 Respiratory Rate 16 12/02/24 23:34 Blood Pressure 105/64 12/03/24 02:00 Pulse Oximetry 91 12/03/24 02:00 Oxygen Delivery Me thod Room Air 12/03/24 00:14 MDM - Chest Pain Medical Decision Making Pt is a 34 yo F with anxiety/panic Hx presenting with a day of chest pressure described as a rock/bubble sensation, intermittent nausea and lightheadedness, SOB when supine, and recent COVID two weeks ago. Symptoms feel different from prior panic episodes; transient relief with burping. DDx: ACS considered despite normal EKG; air trapping around lungs or stomach considered. Anxiety/panic acknowledged but pt states this episode differs from prior. Planned/ordered: Troponin and other blood tests obtained; chest X-ray ordered. Repeat EKG if Sx change. Trial of nitro paste applied. Patient remained hemodynamically stable throughout ED course. Upon reevaluation, she shares that less than a year ago she underwent upper endoscopy and was told that she has physiologically small esophagus diameter though no dilation was performed. She also relates that she felt like there was a piece of food stuck in her esophagus that she had to vomit up, after which she was able to swallow and had several pieces of Uzbek toast. Prior to that, she describes increased salivation and inability to pass food. Is reasonable to suspect that her symptoms today were caused by esophageal irritation from the suspected food bolus foreign body in the esophagus which she was able to vomit up. EKG, chest x-ray, labs are all reassuring. She will be discharged in stable and improved condition with instructions to eat very small bites and chew thoroughly and follow-up closely with the physician who performed upper endoscopy to see whether they would like to reengage and consider balloon dilation. Lab Data 12/03/24 00:03 12/03/24 00:03 Radiology Impressions Chest X-Ray 12/03/24 00:20 IMPRESSION: No acute findings. Laboratory Results WBC 6.59 10^3/uL (3.29-11.43) 12/03/24 00:03 RBC 4.72 10^6/uL (3.85-5.65) 12/03/24 00:03 Hgb 13.70 g/dL (11.27-16.99) 12/03/24 00:03 Hct 40.3 % (36-47) 12/03/24 00:03 MCV 85.4 fl (85-98) 12/03/24 00:03 MCH 29.0 pg (27-33) 12/03/24 00:03 MCHC 34.0 g/dL (30-55) 12/03/24 00:03 RDW 11.8 % (12.1-15.1) L 12/03/24 00:03 Plt Count 239 10^3/cmm (157-399) 12/03/24 00:03 MPV 10.8 fL (7.4-10.4) H 12/03/24 00:03 Neut % (Auto) 43.2 % 12/03/24 00:03 Lymph % (Auto) 42.8 % 12/03/24 00:03 Payne % (Auto) 8.3 % 12/03/24 00:03 Eos % (Auto) 4.9 % 12/03/24 00:03 Baso % (Auto) 0.6 % 12/03/24 00:03 Neut # (Auto) 2.85 10^3/uL (1.8-7.7) 12/03/24 00:03 Lymph # (Auto) 2.8 10^3/uL (0.8-4.8) 12/03/24 00:03 Payne # (Auto) 0.6 10^3/uL (0.2-0.9) 12/03/24 00:03 Eos # (Auto) 0.3 10^3/uL (0.0-0.8) 12/03/24 00:03 Baso # (Auto) 0.0 10^3/uL (0.0-0.1) 12/03/24 00:03 Nucleated RBC % (auto) 0 % 12/03/24 00:03 Nucleated RBCs # 0.0 /100WBC 12/03/24 00:03 Sodium 139 mmol/L (136-145) 12/03/24 00:03 Potassium 3.6 mmol/L (3.5-5.1) 12/03/24 00:03 Chloride 101 mmol/L (98-107) 12/03/24 00:03 Carbon Dioxide 23 mmol/L (22-29) 12/03/24 00:03 Anion Gap 18.6 (5-19) 12/03/24 00:03 BUN 9 mg/dL (6-20) 12/03/24 00:03 Creatinine 0.9 mg/dL (0.5-0.9) 12/03/24 00:03 GFR Calculation 72.6 mL/min (90-130) L 12/03/24 00:03 Glucose 93 mg/dL (65-115) 12/03/24 00:03 Calculated Osmolality 286 mOsm/kg (285-295) 12/03/24 00:03 Calcium 10.6 mg/dL (8.5-10.5) H 12/03/24 00:03 Total Bilirubin 0.8 mg/dL (0.15-1.2) 12/03/24 00:03 AST 20 U/L (0-32) 12/03/24 00:03 ALT 31 U/L (0-33) 12/03/24 00:03 Alkaline Phosphatase 100 U/L (35-105) 12/03/24 00:03 Troponin T Baseline < 6 ng/L (0-10) 12/03/24 00:03 NT-Pro-B Natriuret Pep < 36 pg/mL (0-125) 12/03/24 00:03 Total Protein 8.1 g/dL (6.6-8.7) 12/03/24 00:03 Albumin 4.9 g/dL (3.5-5.2) 12/03/24 00:03 Globulin 3.2 g/dL (1.3-4.6) 12/03/24 00:03 All radiology interpretation(s) finalized by discharge EKG Data EKG 1: Interpretation: Time?2248?sinus rhythm, rate of 95, [address] depression in leads II, 3, aVF as well as V4 and V5 and V6 with submillimeter ST elevation of aVR in isolation. Discharge Plan Discharge Patient Disposition: Home Clinical Impression: Chest discomfort Condition: Stable Prescriptions: No Action hydroxyzine HCl 10 mg tablet 10 mg PO TID PRN (Reason: Anxiety) amoxicillin 500 mg capsule 500 mg PO BID 14 Days Qty: 28 0RF clarithromycin 500 mg tablet 500 mg PO BID 14 Days Qty: 28 0RF pantoprazole 40 mg tablet,delayed release (DR/EC) 40 mg PO BID 14 Days Qty: 28 0RF Discharge Orders: Discharge ED (Routine); Ordered 12/03/24 Ordered By: Adan Malcolm Referrals: Karrie Shaw DO [Primary Care Provider, MEDIA ARTS PROFESSOR] Discharge Diet: Advance as tolerated Discharge Activity: Increase activity as tolerated Patient Instructions: Patient Portal & Stefano Instructions Activity Restrictions/Additional Instructions: Your EKG, chest x-ray, and blood work are all reassuring. The way you describe it, it sounds very likely that you had a piece of food stuck in your esophagus causing you to salivate more than usual and not be able to swallow until you are able to regurgitate and vomit up the piece of food. I would recommend contacting the physician who previously performed endoscopy to ask whether they would like to repeat your EGD and consider expanding your esophagus to avoid similar episodes in the future. Stand Alone Forms: Work/School Release Print Language: Azerbaijani Coding Level of Care Code ED Admeasurer for Brent Rapp
[2024-12-03] VITALS (7 sets, daily range): BP systolic 105–129; BP diastolic 64–89; PULSE 73–105; O2SAT 90–99
[2024-12-03] MEDS: nitroglycerin 1 gm/inch oint Pkt 0.5 INCH TOPICAL (00:07)
--- NOTE | 2024-12-03 00:20 | XRR_ITS ---
PROCEDURE INFORMATION: Exam: XR Chest Exam date and time: 12/03/2024 12:19 AM Age: 34 years old Clinical indication: Pain; Chest pressure TECHNIQUE: Imaging protocol: Radiologic exam of the chest. Views: 1 view. COMPARISON: No relevant prior studies available. FINDINGS: Lungs: Unremarkable. No consolidation. Pleural spaces: Unremarkable. No pleural effusion. No pneumothorax. Heart/Mediastinum: Unremarkable. No cardiomegaly. Bones/joints: Unremarkable. XR/XR chest 1V portable [id number] IMPRESSION: No acute findings.
[2024-12-03 00:26] LABS: Hematocrit 40.3 % (36-47); Hemoglobin 13.70 g/dL (11.27-16.99); Mean Corpuscular HGB Conc 34.0 g/dL (30-55); Mean Corpuscular Hemoglobin 29.0 pg (27-33); Mean Corpuscular Volume 85.4 fl (85-98); Nucleated Red Blood Cells % 0 %; Platelet Count 239 10^3/cmm (157-399); Red Blood Count 4.72 10^6/uL (3.85-5.65); White Blood Count 6.59 10^3/uL (3.29-11.43)
[2024-12-03 00:44] LABS: Troponin(5th) Baseline < 6 ng/L (0-10)
[2024-12-03 00:51] LABS: Alanine Aminotransferase 31 U/L (0-33); Albumin Level 4.9 g/dL (3.5-5.2); Alkaline Phosphatase 100 U/L (35-105); Anion Gap 18.6 (5-19); Aspartate Amino Transferase 20 U/L (0-32); Blood Urea Nitrogen 9 mg/dL (6-20); Calcium 10.6 mg/dL (8.5-10.5); Carbon Dioxide 23 mmol/L (22-29); Chloride 101 mmol/L (98-107); Creatinine Clr Calc Pharmacy 98.9304; Globulin 3.2 g/dL (1.3-4.6); Glucose 93 mg/dL (65-115); NT Pro B Type Natriuretic Pept < 36 pg/mL (0-125); Osmolality Calculated 286 mOsm/kg (285-295); Potassium 3.6 mmol/L (3.5-5.1); Sodium 139 mmol/L (136-145); Total Protein 8.1 g/dL (6.6-8.7)
== END 2024-12-03 03:30 | disposition home or self-care (01) ==
PROVIDERS: Emergency Provider Student in an Organized Health Care Education/Training Program; PCP Family Medicine
DX: R07.89 Other chest pain (principal); Z87.891 Personal history of nicotine dependence
CPT/HCPCS: 71045; 80053; 83880; 84484; 85025; 93005; 99285; J9999

== ENCOUNTER 2024-12-09 16:27 | Outpatient (CLI) | payer OTHER, BC, MEDICAID, SELFPAY ==
--- NOTE | 2024-12-09 17:17 | XR_ITS ---
WS: [id number] Exam: XR KUB [id number] Date/Time of Exam: 12/09/2024 5:18 PM Reason For Exam: CONSTIPATION No bowel obstruction or pneumoperitoneum. No sign of organ enlargement. Numerous faceted lucent calcifications in the RIGHT abdomen suggest cholelithiasis. Bony structures are normal. XR/XR KUB [id number] IMPRESSION: 1. Probable cholelithiasis. 2. No acute abdominal process.
== END 2024-12-09 16:28 | disposition home or self-care (01) ==
LOC: RAD 16:29
PROVIDERS: PCP Family Medicine; Visit Provider Nurse Practitioner Family
DX: K59.00 Constipation, unspecified (principal)
CPT/HCPCS: 74018

== ENCOUNTER 2024-12-15 07:59 | Outpatient (CLI) | payer OTHER, BC, MEDICAID, SELFPAY ==
--- NOTE | 2024-12-15 08:04 | US_ITS ---
WS: [id number] RIGHT UPPER QUADRANT ULTRASOUND HISTORY: RUQ ABDOMINAL PAIN/EPIGASTRIC DISCOMFORT COMPARISON: None available. Liver: 14.3 cm in length. Normal size liver and echogenicity. No bile duct dilatation or mass. Portal Vein: Normal hepatopetal flow with monophasic waveform. Gallbladder: Gallbladder is not identified. There is a large amount of shadowing from the gallbladder fossa suggesting this is a stone filled gallbladder. CBD: 0.4 cm Pancreas: Normal size and echogenicity. Right kidney: 10.2 cm in length. Normal size and echogenicity. No hydronephrosis or mass. Aorta and IVC: Unremarkable abdominal aorta and IVC. No ascites. US/US abdomen limited [id number] IMPRESSION: 1. Gallbladder is not identified. Large amount of shadowing from the gallbladd er fossa. Findings consistent with a stone filled gallbladder. 2. No intrahepatic duct dilatation. 3. Negative liver.
== END 2024-12-15 08:00 | disposition home or self-care (01) ==
LOC: RAD 08:01
PROVIDERS: PCP Family Medicine; Visit Provider Nurse Practitioner Family
DX: R10.11 Right upper quadrant pain (principal); R10.13 Epigastric pain
CPT/HCPCS: 76705